=== PATIENT | female | born 1985 | race Caucasian/White ===

== ENCOUNTER → 2016-06-17 | Outpatient (REF) | payer OTHER ==
[~2016-06-17] MED LIST: AUGM875T27 PO; GAS-CAP4 PO; IRON65TA PO; MULTTAB6 PO; PERC5TAB6 PO; PRIL20CA PO; VENL75TA3 PO; VITA500T53 PO; mylicon PO
[2016-06-17 16:44] LABS: ALKALINE PHOSPHATASE 76 U/L (45-117); ALT/SGPT 19 U/L (12-78); AMYLASE 47 U/L (25-115); ANION GAP 7 MEQ/L (8-16); AST/SGOT 11 U/L (15-37); BILIRUBIN,TOTAL 0.5 MG/DL (0.2-1.0); BLOOD UREA NITROGEN 7 MG/DL (7-18); CARBON DIOXIDE LEVEL 31 MEQ/L (21-32); CHLORIDE LEVEL 103 MEQ/L (98-107); CREATININE FOR GFR 0.61 MG/DL (0.55-1.02); GLOMERULAR FILTRATION RATE > 60.0 (>60); GLUCOSE, FASTING 85 MG/DL (70-105); POTASSIUM SERUM 4.5 MEQ/L (3.5-5.1); SODIUM LEVEL 141 MEQ/L (136-145); TOTAL PROTEIN 6.5 GM/DL (6.4-8.2)
[2016-06-17 16:49] LABS: BASO # 0.1 K/mm3 (0.0-0.2); BASO % 0.7 % (0.0-1.0); EOS % 0.6 % (0.0-3.0); LARGE UNSTAINED CELL # 0.1 K/mm3 (0.0-0.4); LARGE UNSTAINED CELL % 0.9 % (0.0-4.0); LYMPH # 1.2 K/mm3 (1.5-4.5); LYMPH % 15.7 % (24.0-44.0); MEAN CORPUSCULAR HEMOGLOBIN 30.3 pg (27.0-33.0); MEAN CORPUSCULAR HGB CONC 33.4 g/dl (32.0-36.5); MEAN CORPUSCULAR VOLUME 90.7 fl (80.0-96.0); MONO # 0.4 K/mm3 (0.0-0.8); MONO % 4.5 % (0.0-5.0); NEUTROPHILS # 6.1 K/mm3 (1.8-7.7); NEUTROPHILS % 77.5 % (36.0-66.0); PLATELET COUNT, AUTOMATED 348 k/mm3 (150-450); RED CELL DISTRIBUTION WIDTH 12.3 % (11.5-14.5); WHITE BLOOD COUNT 7.9 K/mm3 (4.0-10.0)
== END ==
LOC: M SFHCLERA 10:46
PROVIDERS: ATTEND Physician Assistant
DX: R10.13 Epigastric pain (principal)

== ENCOUNTER → 2016-12-19 | Outpatient (REF) | payer OTHER ==
[~2016-12-19] MED LIST changes: -AUGM875T27 PO; +AUGM875T28 PO; +PERC5TAB12 PO; -PERC5TAB6 PO; -PRIL20CA PO; +PRIL20CA9 PO
[2016-12-19 11:03] LABS: BASO % 0.6 % (0.0-1.0); EOS # 0.1 K/mm3 (0.0-0.50); EOS % 1.2 % (0.0-3.0); LARGE UNSTAINED CELL # 0.1 K/mm3 (0.0-0.4); LARGE UNSTAINED CELL % 1.6 % (0.0-4.0); LYMPH # 1.3 K/mm3 (1.5-4.5); MEAN CORPUSCULAR HEMOGLOBIN 30.5 pg (27.0-33.0); MEAN CORPUSCULAR HGB CONC 33.9 g/dl (32.0-36.5); MEAN CORPUSCULAR VOLUME 89.8 fl (80.0-96.0); MONO # 0.4 K/mm3 (0.0-0.8); MONO % 7.9 % (0.0-5.0); NEUTROPHILS # 3.2 K/mm3 (1.8-7.7); NEUTROPHILS % 64.7 % (36.0-66.0); PLATELET COUNT, AUTOMATED 341 k/mm3 (150-450); RED CELL DISTRIBUTION WIDTH 12.9 % (11.5-14.5); WHITE BLOOD COUNT 4.9 K/mm3 (4.0-10.0)
[2016-12-19 11:23] LABS: PERCENT SATURATION 8.8 % (13.2-37.4)
== END ==
LOC: M SFHCLERA 08:47
PROVIDERS: ATTEND Family Medicine
DX: R10.9 Unspecified abdominal pain (principal); R53.82 Chronic fatigue, unspecified; R73.01 Impaired fasting glucose

== ENCOUNTER 2025-01-09 14:20 | Outpatient (CLI) | payer OTHER ==
[~2025-01-09] VITALS: Ht 167.6 cm; Wt 88.6 kg
[~2025-01-09 14:20] MED LIST changes: +ALBUTEROL SULFATE 2.5 MG/0.5 ML INH CONCENTRATE NEB SOLN INH PRN; +EPINEPHrine INJ 1 MG/ML 1ML AMP IM PRN; +VENL-65 PO; -VENL75TA3 PO; +VITA500T17 PO; -VITA500T53 PO; +diphenhydrAMINE 50 MG/ML VIAL IV PRN
[2025-01-09] MEDS ORDERED: NS (Normal Saline) 0.9% 1,000 ML IV SCH (14:30)
[2025-01-09 14:45] VITALS: BP 121/81; O2SAT 99
[2025-01-09] MEDS: FERRIC CARBOXYMALTOSE 750 MG (VIAL MATE) IN 100ML NS IV ONE (14:45)
[2025-01-09] MEDS ORDERED: BUSP5TA PO (14:57)
[2025-01-09 15:20] VITALS: BP 133/88; O2SAT 98
== END 2025-01-09 15:20 | disposition home or self-care (01) ==
LOC: M INFU 14:20
PROVIDERS: ATTEND Internal Medicine
DX: E61.1 Iron deficiency (principal)
CPT/HCPCS: 96365; J1439

== ENCOUNTER 2025-01-16 13:53 | Outpatient (CLI) | payer OTHER ==
[~2025-01-16] VITALS: Ht 167.6 cm; Wt 88.6 kg
[~2025-01-16 13:53] MED LIST changes: +BUSP5TA PO
[2025-01-16 14:10] VITALS: BP 133/84; O2SAT 98
[2025-01-16] MEDS: FERRIC CARBOXYMALTOSE 750 MG (VIAL MATE) IN 100ML NS IV ONE (14:21)
== END 2025-01-16 14:45 ==
LOC: M INFU 13:53
PROVIDERS: ATTEND Internal Medicine
DX: D50.9 Iron deficiency anemia, unspecified (principal)
CPT/HCPCS: 96374; J1439